=== PATIENT | male | born 1965 | race Caucasian/White ===

== ENCOUNTER 2016-11-28 13:55 | Day surgery (SDC) | payer BC ==
[~2016-11-28] VITALS: Ht 180.3 cm; Wt 109.0 kg
[2016-11-28 14:22] VITALS: BP 135/90
[2016-11-28] MEDS ORDERED: NORCO 5/3251 TABLET PO (20:50)
[2016-11-28 22:00] VITALS: BP 139/84
== END 2016-11-29 00:45 | disposition home or self-care (01) ==
LOC: SDC 13:55 → 2EAST 22:32
PROC: 0WUF0JZ Supplement Abdominal Wall with Synthetic Substitute, Open Approach (ICD-10-PCS; principal; 2016-11-28)
DX: K42.0 Umbilical hernia with obstruction, without gangrene (principal); Z80.3 Family history of malignant neoplasm of breast; Z83.3 Family history of diabetes mellitus
CPT/HCPCS: C1781; G0378; J0330; J0690; J1100; J1170; J1885; J2250; J2405; J3010; J7120; S0020